=== PATIENT | male | born 1965 | race Caucasian/White ===

== ENCOUNTER 2018-04-27 10:21 | Emergency (ER) | payer OTHER ==
[~2018-04-27] VITALS: Ht 182.9 cm; Wt 68.0 kg
--- NOTE | 2018-04-28 19:40 | EKG ---
[facility] [address] [facility] [place], [place] [address] Signed Normal sinus rhythm Possible Left atrial enlargement Rightward axis Borderline ECG No previous ECGs available Confirmed by NAVNEET MCQUEEN MD ([id number] on 04/28/2018 7:39:59 PM Electronically Signed By: NAVNEET MCQUEEN MD 04/28/181939 PATIENT NAME: NADEGE GREENE Electrocardiogram DATE OF : 67 PHYSICIAN: NAVNEET MCQUEEN MD REPORT #: [id number] REPORT IS CONFIDENTIAL AND NOT TO BE RELEASED WITHOUT AUTHORIZATION
== END 2018-04-27 15:52 | disposition short-term general hospital (02) ==
LOC: ED 10:21
DX: J84.89 Other specified interstitial pulmonary diseases (principal)
CPT/HCPCS: 71045; 71250; 80053; 81001; 83605; 84484; 85025; 93005; 93010; 96361; 96365; 96375; 99285; J0456; J1885; J2543; J7030; J7050

== ENCOUNTER 2020-05-27 10:17 | Emergency (ER) | payer OTHER ==
[~2020-05-27] VITALS: Ht 182.9 cm; Wt 68.0 kg
[2020-05-27] MEDS ORDERED: CYCLOBENZAPRINE10 MG PO (11:32)
[2020-05-27] MEDS ORDERED: NORCO 7.5-3251 EACH PO (11:32)
== END 2020-05-27 11:50 | disposition home or self-care (01) ==
LOC: ED 10:17
DX: S29.012A Strain of muscle and tendon of back wall of thorax, initial encounter (principal); M62.830 Muscle spasm of back; F17.200 Nicotine dependence, unspecified, uncomplicated; X58.XXXA Exposure to other specified factors, initial encounter
CPT/HCPCS: 71046; 99283-25; A9270

== ENCOUNTER 2021-12-12 05:43 | Emergency (ER) | payer SELFPAY ==
[~2021-12-12] VITALS: Ht 182.9 cm; Wt 69.7 kg
[~2021-12-12 05:43] MED LIST: CYCLOBENZAPRINE10 MG PO; NORCO 7.5-3251 EACH PO
[2021-12-12] MEDS ORDERED: CIPRO500 MG PO (09:22)
--- NOTE | 2021-12-12 16:23 | EKG ---
[facility] [address] [facility] [place] [address] Signed Normal sinus rhythm Possible Left atrial enlargement Rightward axis Borderline ECG When compared with ECG of 27-APR-2018 10:25, No significant change was found Confirmed by RACHEL SKINNER DO ([id number]) on 12/12/2021 4:23:31 PM Electronically Signed By: RACHEL SKINNER DO 12/12/21 1623 PATIENT NAME: NADEGE GREENE Electrocardiogram DATE OF : 67 PHYSICIAN: RACHEL SKINNER DO REPORT #: [id number] REPORT IS CONFIDENTIAL AND NOT TO BE RELEASED WITHOUT AUTHORIZATION
== END 2021-12-12 09:36 | disposition home or self-care (01) ==
LOC: ED 05:43
DX: N39.0 Urinary tract infection, site not specified (principal); F17.200 Nicotine dependence, unspecified, uncomplicated
CPT/HCPCS: 36415; 74177; 80053; 81001; 83605; 83690; 85007; 85025; 85610; 85730; 86850; 86900; 86901; 87088; 93005; 93010; 96365; 96375; 99284-25; J0696; J2405; J7121